=== PATIENT | male | born 1995 | race Caucasian/White ===

== ENCOUNTER 2021-08-21 17:15 | Emergency (ER) | payer OTHER ==
[~2021-08-21] VITALS: Ht 190.5 cm; Wt 87.1 kg
[~2021-08-21 17:15] MED LIST: CEFADROXIL500 MG PO; CONCERTA36 MG/BOTT; KETO10TA2 PO; RITALIN5 M1
== END 2021-08-21 23:48 | disposition home or self-care (01) ==
LOC: ER 17:15
DX: K29.70 Gastritis, unspecified, without bleeding (principal); Z72.0 Tobacco use

== ENCOUNTER 2021-12-31 23:37 | Emergency (ER) | payer OTHER ==
[~2021-12-31] VITALS: Ht 182.9 cm; Wt 82.6 kg
[2022-01-01] MEDS ORDERED: ORPHENADRINE C100 MG PO (05:47)
[2022-01-01] MEDS ORDERED: KETO10TA2 PO (05:47)
== END 2022-01-01 06:13 ==
LOC: ER 23:37
DX: R07.89 Other chest pain (principal); Z20.822 Contact with and (suspected) exposure to COVID-19

== ENCOUNTER 2024-07-14 11:15 | Emergency (ER) | payer OTHER ==
[~2024-07-14] VITALS: Ht 188 cm; Wt 95.3 kg
[~2024-07-14 11:15] MED LIST changes: +ORPHENADRINE C100 MG PO
[2024-07-14] MEDS ORDERED: KETOROLAC TROMETHAMINE 60 MG VIAL IM ONE ×2 (15:00→15:09)
== END 2024-07-14 17:17 ==
LOC: ER 11:16
DX: G89.11 Acute pain due to trauma (principal); M79.645 Pain in left finger(s); M79.652 Pain in left thigh